=== PATIENT | female | born 1955 | race Caucasian/White ===

== ENCOUNTER 2025-09-03 10:49 | Emergency (ER) | payer MEDICARE, OTHER ==
[~2025-09-03] VITALS: Ht 172.7 cm; Wt 105.0 kg
[2025-09-03] MEDS ORDERED: FLAXSEED OIL1000 M1 PO (11:06)
[2025-09-03 11:54] LABS: BASOPHILS 0.6 % (0.1-1.2); EOSINOPHILS 3.2 % (0.7-5.8); LYMPHOCYTES 12.0 % (19.3-51.7); MCH 29.5 PG (25.6-32.2); MCHC 31.9 g/dL (32.2-35.5); MCV 92.4 fL (79.4-94.8); MONOCYTES 6.1 % (4.7-12.5); NEUTROPHILS 77.9 % (34.0-71.1); RBC 4.61 M/uL (3.93-5.22)
[2025-09-03 12:12] LABS: ALT (SGPT) 23.0 U/L (14-59); AST (SGOT) 14.0 U/L (15-37); GLOMERULAR FILTRATION RATE,EST 77.0 mL/min (>60); PROTEIN, TOTAL 7.2 g/dL (6.4-8.2); UREA NITROGEN 13.0 mg/dL (7-18)
[2025-09-03 14:38] VITALS: BP 130/81
--- NOTE | 2025-09-04 19:40 | EKG ---
[facility] [address] [facility] [place], [place] [address] Signed Normal sinus rhythm Normal ECG No previous ECGs available Confirmed by Froilan Montoya DO ([id number]) on 09/04/2025 7:40:26 PM Electronically Signed By: FROILAN MONTOYA DO 09/04/251939 PATIENT NAME: CALVINSYEDA CARLOS Electrocardiogram DATE OF : 55 PHYSICIAN: FROILAN MONTOYA DO REPORT #: [id number] REPORT IS CONFIDENTIAL AND NOT TO BE RELEASED WITHOUT AUTHORIZATION
== END 2025-09-03 14:35 | disposition home or self-care (01) ==
LOC: ED 10:49
PROVIDERS: Emergency Medicine
DX: R42 Dizziness and giddiness (principal); Z88.0 Allergy status to penicillin; Z88.1 Allergy status to other antibiotic agents; Z88.2 Allergy status to sulfonamides
CPT/HCPCS: 36415; 80053; 83735; 84484; 85025; 93005; 93010; 99284